=== PATIENT | female | born 1990 | race Caucasian/White ===

== ENCOUNTER 2019-11-05 21:35 | Emergency (ER) | payer OTHER ==
[2019-11-05 21:49] VITALS: BP 114/77; PULSE 87; TEMP 97.8; BMI 27.3
[2019-11-05] MEDS ORDERED: ALBUTEROL SO4 2.5/IPRATROPIUM 0.5 INH SOL 3 ML VIAL.NEB. NEB ONE (22:41)
[2019-11-05] MEDS: ALBUTEROL SO4 2.5/IPRATROPIUM 0.5 INH SOL 3 ML VIAL.NEB. NEB SCH ×4 (22:49→23:25)
--- NOTE | 2019-11-05 22:55 | PDOC ---
History of Present Illness - General Chief Complaint: Asthma Stated Complaint: ASTHMA Time Seen by Provider: 11/05/19 22:00 History Source: Patient Exam Limitations: No Limitations - History of Present Illness Initial Comments: 11/05/19 22:53 HISTORY OF PRESENT ILLNESS: 29-year-old woman with past medical history of asthma presents emergency department for evaluation of cough with posttussive vomiting. Patient reports she was seen and evaluated by her primary doctor 3 days ago and was placed on steroids. Patient reports she has been taking her asthma pumps as directed but is concerned that the pumps have not stopped her from coughing. She denies any shortness of breath but does feel "dryness in my throat." She denies any fevers, chills, shortness of breath or wheezing. No recent travel or sick contacts. PAST MEDICAL HISTORY: See HPI SURGICAL HISTORY: Denies ALLERGIES: No known drug allergies REVIEW OF SYSTEMS General/Constitutional: Denies fever or chills. Denies weakness, weight change. HEENT: Denies change in vision. Denies ear pain or discharge. Denies sore throat. Cardiovascular: Denies chest pain or shortness of breath. Respiratory: See HPI Gastrointestinal: Denies nausea, vomiting, diarrhea or constipation. Denies rectal bleeding. Genitourinary: Denies dysuria, frequency, or change in urination. Musculoskeletal: Denies joint or muscle swelling or pain. Denies neck or back pain. Skin and breasts: Denies rash or easy bruising. Neurologic: Denies headache, vertigo, loss of consciousness, or loss of sensation. Psychiatric: Denies depression or anxiety. Endocrine: Denies increased thirst. Denies abnormal weight change. Hematologic/Lymphatic: Denies anemia, easy bleeding, or history of blood clots. Allergic/Immunologic: Denies hives or skin allergy. Denies latex allergy. PHYSICAL EXAM General Appearance: Well-appearing, appropriately dressed. No apparent distress, no intoxication. HEENT: EOMI, PERRLA, normal ENT inspection, normal voice, TMs normal, pharynx normal. No conjunctival pallor. No photophobia, scleral icterus. Neck: Supple. Trachea midline. No tenderness, rigidity, carotid bruit, stridor, lymphadenopathy, or thyromegaly. Respiratory/Chest: Lungs CTAB. No shortness of breath, chest tenderness, respiratory distress, accessory muscle use. No crackles, rales, rhonchi, stridor, dullness. Expiratory wheezes present to bases. Cardiovascular: RRR. S1, S2. No JVD, murmur, bradycardia, tachycardia. Integumentary: Appropriate color, dry, warm. No cyanosis, erythema, jaundice or rash Past History - Medical History Allergies/Adverse Reactions: Allergies Allergy/AdvReac Type Severity Reaction Status Date / Time No Known Allergies Allergy Verified 11/05/19 21:49 Home Medications: Ambulatory Orders Albuterol 2.5/Ipratropium 0.5 [Duoneb -] 1 amp NEB Q15M PRN #60 amp 11/05/19 Benzonatate [Tessalon Pearls -] 200 mg PO TID #42 cap 11/05/19 Nebulizer Accessories [Reusable Nebulizer Kit] 1 each MC ONCE #1 kit 11/05/19 Nebulizer and Compressor [Easy Air Compressor Nebulizer] 1 each MC ONCE #1 each 11/05/19 Asthma: Yes COPD: No - Reproductive History Is Patient Now?: No - Psycho-Social/Smoking History Smoking History: Never smoked - Substance Abuse Hx (Audit-C & DAST Scrn) How often the patient has a drink containing alcohol: Never Score: In Men: 4 or > Positive; In Women: 3 or > Positive: 0 Screen Result (Pos requires Nsg. Audit-10AR): Negative In the last yr the pt used illegal drug/Rx for NonMed reason: No Score: Yes response is considered Positive: 0 Screen Result (Positive result requires Nsg. DAST-10): Negative *Physical Exam - Vital Signs Last Vital Signs Temp Pulse Resp BP Pulse Ox 97.8 F 87 19 114/77 96 11/05/19 21:45 11/05/19 21:45 11/05/19 21:45 11/05/19 21:45 11/05/19 21:45 Medical Decision Making - Medical Decision Making 11/05/19 22:55 A/P: 29-year-old woman for evaluation of cough and posttussive vomiting Lung exam reveals bilateral expiratory wheezes in bases Otherwise unremarkable DuoNeb's x4 Reassess 11/05/19 23:21 Repeat exam reveals clear lungs. Discharge home to follow-up with PMD We will send prescription for albuterol nebulizer treatments and nebulizer machine to preferred pharmacy. I discussed the physical exam findings, ancillary test results and final diagnoses with the patient. I answered all of the patient's questions. The patient was satisfied with the care received and felt comfortable with the disc harge plan and treatment plan. The patient will call their primary care physician within 24 hours to arrange follow-up and will return to the Emergency Department with any new, persistent or worsening symptoms. Portions of this note have been documented using voice recognition software. As a result, errors may occur in the wilton weaver process. Effort has been made to correct all grammatical and wilton weaver error, but some may have been missed which may produce sporadic inaccurate wilton weaver or nonsensical phrases. Discharge - Discharge Information Problems reviewed: Yes Clinical Impression/Diagnosis: Cough Condition: Stable Disposition: HOME - Admission No - Additional Discharge Information Prescriptions: Albuterol 2.5/Ipratropium 0.5 [Duoneb -] 1 amp NEB Q15M PRN #60 amp PRN Reason: Short Of Breath/Wheezing Nebulizer and Compressor [Easy Air Compressor Nebulizer] 1 each MC ONCE #1 each Nebulizer Accessories [Reusable Nebulizer Kit] 1 each MC ONCE #1 kit Benzonatate [Tessalon Pearls -] 200 mg PO TID #42 cap - Follow up/Referral Referrals: ON STAFF,NOT [Primary Care Provider] - - Patient Discharge Instructions Additional Instructions: Rest, drink lots of fluids: Teas, water, soups, Pedialyte Saltwater gargles Steamy showers/seem to face break up mucus Avoid contact with others until fevers and cough resolved Lots of handwashing and good hygiene Continue [id number] medications for symptomatic relief Tylenol or Motrin for fever and pain Continue albuterol nebulizers every 4-6 hours for the next 2 days then as needed for continued cough Prednisone as previously prescribed Tessalon 200 mg 3 times a day as needed for cough Followup with private physician in one to 2 days Return to emergency department / pediatric hospital for worsened symptoms, fevers, dehydration - Post Discharge Activity
--- OUTSIDE RECORDS SUMMARY | 2019-11-06 07:22 | XMS ---
:1990 Author Organization [facility] Support Name Relationship Address Phone UE Unavailable Unavailable Unavailable LILIAM MÉNDEZ OTHER RELATIONSHIP [address] [facility] [id number] [phone] [place] [address] Re-disclosure Warning The records that you are about to access may contain information from federally- assisted alcohol or drug abuse programs. If such information is present, then the following federally mandated warning applies: This information has been disclosed to you from records protected by federal confidentiality rules (42 CFR part 2). The federal rules prohibit you from making any further disclosure of this information unless further disclosure is expressly permitted by the written consent of the person to whom it pertains or as otherwise permitted by 42 CFR part 2. A general authorization for the release of medical or other information is NOT sufficient for this purpose. The Federal rules restrict any use of the information to criminally investigate or prosecute any alcohol or drug abuse patient.The records that you are about to access may contain highly sensitive health information, the redisclosure of which is protected by Article 27-F of the [facility] Public Health law. If you continue you may haveaccess to information: Regarding HIV / AIDS; Provided by facilities licensed or operated by the [facility] Office of Mental Health; or Provided by the [facility] Office for People With Developmental Disabilities. If such information is present, then the following [facility] mandated warning applies: This information has been disclosed to you from confidential records which are protected by state law. State law prohibits you from making any further disclosure of this information without the specific written consent of the person to whom it pertains, or as otherwise permitted by law. Any unauthorized further disclosure in violation of state law may result in a fine or snf sentence or both. A general authorization for the release of medical or other information is NOT sufficient authorization for further disclosure. Insurance Providers Payer name Policy type Policy ID Covered Covered alliance party's Policy P massiel / Coverage alliance party ID relationship to [place] [employer] type [place] MEDICAID [id number]
== END 2019-11-05 23:33 | disposition home or self-care (01) ==
LOC: JER 21:35
DX: R05 Cough (principal)
CPT/HCPCS: 99282-25

== ENCOUNTER 2019-12-26 12:45 | Emergency (ER) | payer BC, OTHER ==
[2019-12-26 12:56] VITALS: BP 118/102; PULSE 89; TEMP 98.4; BMI 28.3
== END 2019-12-26 13:35 | disposition home or self-care (01) ==
LOC: JERFT 12:45
DX: R05 Cough (principal); Z03.818 Encounter for observation for suspected exposure to other biological agents ruled out
CPT/HCPCS: 99283-25; C9803; U0003

== ENCOUNTER 2020-01-07 11:22 | Emergency (ER) | payer BC ==
[2020-01-07] MEDS ORDERED: ACETAMINOPHEN 500 MG TABLET (FP) ONE (12:03)
[2020-01-07 12:04] VITALS: BP 117/77; PULSE 108; TEMP 100.2; BMI 28.3
[2020-01-07] MEDS ORDERED: ACETAMINOPHEN 500 MG TABLET (FP) PO ONE (12:17)
== END 2020-01-07 14:09 | disposition home or self-care (01) ==
LOC: JER 11:22
DX: R50.9 Fever, unspecified (principal)
CPT/HCPCS: 71045-TC-FY; 87804; 99284-25; C9803; U0003

== ENCOUNTER 2020-01-29 11:32 | Emergency (ER) | payer BC ==
[2020-01-29 11:39] VITALS: BP 121/74; PULSE 80; TEMP 98.8; BMI 29.2
== END 2020-01-29 13:42 | disposition home or self-care (01) ==
LOC: JER 11:32
DX: M79.10 Myalgia, unspecified site (principal); R68.83 Chills (without fever); Z11.59 Encounter for screening for other viral diseases
CPT/HCPCS: 99283-25; C9803; U0003

== ENCOUNTER 2020-04-29 22:00 | Emergency (ER) | payer BC ==
[2020-04-29 22:18] VITALS: BMI 31.8
[2020-04-29] MEDS ORDERED: ALBUTEROL SO4 2.5/IPRATROPIUM 0.5 INH SOL 3 ML VIAL.NEB. NEB ONE (22:43)
[2020-04-29] MEDS ORDERED: ALBUTEROL SO4 2.5/IPRATROPIUM 0.5 INH SOL 3 ML VIAL.NEB. NEB SCH (22:45)
[2020-04-29 22:49] LABS: BASO % 0.9 % (0-2.0); EOS % 1.6 % (0-4.5); HEMATOCRIT 39.2 % (32.4-45.2); LYMPH % 31.2 % (8-40); MCHC 33.2 g/dl (32.0-36.0); MEAN CELL VOLUME 78.3 fl (80-96); MEAN PLT VOLUME 8.2 fl (7.5-11.1); MONO % 6.6 % (3.8-10.2); NEUT % 59.7 % (42.8-82.8); PLATELET COUNT 297 K/MM3 (134-434); RDW 13.7 % (11.6-15.6); WHITE BLOOD COUNT 9.8 K/mm3 (4.0-10.0)
[2020-04-29 23:07] LABS: CHLORIDE 105 mmol/L (98-107); POTASSIUM 3.9 mmol/L (3.5-5.1); SODIUM 139 mmol/L (136-145)
[2020-04-29 23:09] LABS: ALBUMIN 3.6 g/dl (3.4-5.0); ANION GAP 6 MMOL/L (8-16); CALCIUM 9.4 mg/dL (8.5-10.1); CO2 29 mmol/L (21-32)
[2020-04-29 23:10] LABS: GLUCOSE,RANDOM 125 mg/dL (74-106)
[2020-04-29 23:13] LABS: CREATININE 0.8 mg/dL (0.55-1.3); SGOT/AST 13 U/L (15-37); SGPT/ALT 21 U/L (13-61)
[2020-04-29 23:14] LABS: BILIRUBIN,TOTAL 0.2 mg/dL (0.2-1); TOT PROT 7.3 g/dl (6.4-8.2)
[2020-04-29 23:15] LABS: ALK PHOS 77 U/L (45-117)
[2020-04-29 23:46] VITALS: BP 121/61; PULSE 99; TEMP 97.4
== END 2020-04-30 01:41 | disposition home or self-care (01) ==
LOC: JER 22:00
DX: J45.41 Moderate persistent asthma with (acute) exacerbation (principal)
CPT/HCPCS: 36415; 71046-TC-FY; 71275-TC; 80053; 84484; 84703; 85025; 85379; 93005; 93010; 99285-25; Q9967

== ENCOUNTER 2020-10-26 00:55 | Emergency (ER) | payer BC ==
[2020-10-26 01:14] VITALS: TEMP 98.6; BMI 32.9
[2020-10-26] MEDS ORDERED: MAGNESIUM SULF 50% (8.12 MEQ/2 ML-1 GM VIAL) IVPB ONE (01:47)
[2020-10-26] MEDS ORDERED: ALBUTEROL SO4 2.5/IPRATROPIUM 0.5 INH SOL 3 ML VIAL.NEB. NEB ONE ×2 (01:47→02:15)
[2020-10-26] MEDS ORDERED: DEXAMETHASONE SOD PHOSPHATE 10 MG/1 ML VIAL IVPUSH ONE (01:47)
[2020-10-26] MEDS ORDERED: DEXAMETHASONE SOD PHOSPHATE 10 MG/1 ML VIAL ONE (02:15)
[2020-10-26] MEDS ORDERED: MAGNESIUM SULFATE IN WATER 2 GM/50 ML IVPB IVPB ONE (02:16)
[2020-10-26] MEDS ORDERED: BENZOCAINE/MENTH/CETYLPYRD CL 1 EACH LOZENGE MM ONE ×2 (02:38→05:24)
[2020-10-26] MEDS: BENZOCAINE/MENTH/CETYLPYRD CL 1 EACH LOZENGE MM PRN ×2 (02:54→05:26)
[2020-10-26 04:07] LABS: BASO % 0.3 % (0-2.0); EOS % 1.3 % (0-4.5); HEMATOCRIT 36.4 % (32.4-45.2); HEMOGLOBIN 12.3 GM/dL (10.7-15.3); LYMPH % 28.4 % (8-40); MCHC 33.8 g/dl (32.0-36.0); MEAN CELL VOLUME 76.8 fl (80-96); MEAN PLT VOLUME 8.2 fl (7.5-11.1); MONO % 3.9 % (3.8-10.2); NEUT % 66.1 % (42.8-82.8); PLATELET COUNT 211 10^3/uL (134-434); RBC 4.74 M/mm3 (3.60-5.2)
[2020-10-26 04:28] LABS: ALBUMIN 3.3 g/dl (3.4-5.0); BLOOD UREA NITROGEN 14.2 mg/dL (7-18); CALCIUM 8.4 mg/dL (8.5-10.1)
[2020-10-26 04:32] LABS: CREATININE 0.8 mg/dL (0.55-1.3)
[2020-10-26 04:33] LABS: BILIRUBIN,TOTAL 0.2 mg/dL (0.2-1); TOT PROT 6.6 g/dl (6.4-8.2)
[2020-10-26 06:50] VITALS: BP 109/68; PULSE 86
== END 2020-10-26 06:50 | disposition home or self-care (01) ==
LOC: JER 00:55
PROC: 3E0F7GC Introduction of Other Therapeutic Substance into Respiratory Tract, Via Natural or Artificial Opening (ICD-10-PCS; principal; 2020-10-26)
PROC: 3E033NZ Introduction of Analgesics, Hypnotics, Sedatives into Peripheral Vein, Percutaneous Approach (ICD-10-PCS; 2020-10-26)
PROC: 3E033GC Introduction of Other Therapeutic Substance into Peripheral Vein, Percutaneous Approach (ICD-10-PCS; 2020-10-26)
DX: J45.901 Unspecified asthma with (acute) exacerbation (principal)
CPT/HCPCS: 36415; 71046-TC-FY; 71275-TC; 80053; 84703; 85025; 93005; 93010; 99291; C9803; J1100; U0003; U0005

== ENCOUNTER 2023-09-03 09:25 | Emergency (ER) | payer BC, OTHER ==
[2023-09-03 09:36] VITALS: BP 130/90; PULSE 85; RESP 18; TEMP 98.3; BMI 30.9
== END 2023-09-03 15:00 | disposition home or self-care (01) ==
LOC: JER 09:25
DX: J45.909 Unspecified asthma, uncomplicated (principal); Z69.11 Encounter for mental health services for victim of spousal or partner abuse
CPT/HCPCS: 99282-25

== ENCOUNTER 2024-02-21 19:46 | Emergency (ER) | payer OTHER ==
[2024-02-21 19:54] VITALS: BP 117/81; PULSE 93; RESP 20; TEMP 99; BMI 28.3
[2024-02-21 21:09] LABS: BASO % 0.5 % (0-2.0); EOS % 0.7 % (0-4.5); HEMATOCRIT 39.9 % (32.4-45.2); LYMPH % 22.9 % (8-40); MCH 25.5 pg (25.7-33.7); MCHC 32.7 g/dl (32.0-36.0); MEAN CELL VOLUME 78.2 fl (80-96); MEAN PLT VOLUME 7.8 fl (7.5-11.1); MONO % 5.7 % (3.8-10.2); NEUT % 70.2 % (42.8-82.8); PLATELET COUNT 339 10^3/uL (134-434); WHITE BLOOD COUNT 10.4 K/mm3 (4.0-10.0)
[2024-02-21 21:51] LABS: ALBUMIN 3.6 g/dl (3.4-5.0); BLOOD UREA NITROGEN 16.6 mg/dL (7-18); CALCIUM 9.1 mg/dL (8.5-10.1)
[2024-02-21 21:54] LABS: CREATININE 0.9 mg/dL (0.55-1.3)
[2024-02-21 21:56] LABS: BILIRUBIN,TOTAL 0.2 mg/dL (0.2-1); TOT PROT 7.3 g/dl (6.4-8.2)
[2024-02-21 22:32] LABS: HIV INTERPRETATION NEGATIVE (NEGATIVE)
== END 2024-02-21 22:07 | disposition home or self-care (01) ==
LOC: JERFT 19:46
DX: R61 Generalized hyperhidrosis (principal); R50.9 Fever, unspecified; R05.9 Cough, unspecified; R09.3 Abnormal sputum; Z20.822 Contact with and (suspected) exposure to COVID-19
CPT/HCPCS: 0241U-QW; 36415; 71046-TC-FY; 80053; 85025; 86803; 87389; 99284-25